=== PATIENT | male | born 1985 | race Two or more races ===

== ENCOUNTER 2016-08-03 13:04 | Emergency (ER) | payer SELFPAY ==
[~2016-08-03] VITALS: Ht 182.9 cm; Wt 72.6 kg
--- NOTE | 2016-08-03 14:12 | Emergency Room Report ---
History of Present Illness General Chief Complaint: Pain Source: Patient Present Illness HPI 31 YO Male presents to the ED c/o Right flank pain with palpable superficial mass x 6 months, pain described as burning in nature, worse with lying supine pt rates his burning sensation as 6/10 in severity, exacerbated with palpation. pt. Denies nausea, vomiting, fevers, chills, constipation, diarrhea, abdominal pain, dysuria, hematuria.he reports a history of benign cyst in the left upper shoulder that he states is cosmetic, and does not cause him symptoms as the smaller palpated version on this right flank. Denies CP, Palpitations, LOC, AMS , dizziness, Changes in Vision, Sensation, paresthesias, or a sudden severe headache. Allergies: Coded Allergies: No Known Allergies (Unverified , 08/03/16) Patient History Past Medical History: see triage record Past Surgical History: none Pertinent Family History: none Immunizations: UTD Reviewed Nursing Documentation: PMH: Agreed, PSxH: Agreed Nursing Documentation-PMH Past Medical History: No Stated History Review of Systems All Other Systems: negative except mentioned in HPI Physical Exam Vital Signs Date Time Temp Pulse Resp B/P Pulse Ox O2 Delivery O2 Flow Rate FiO2 08/03/16 13:13 97.9 91 16 136/80 98 Room Air Sp02 EP Interpretation: reviewed, normal General Appearance: no apparent distress, alert, GCS 15, non-toxic Head: normocephalic, atraumatic Eyes: bilateral eye PERRL, bilateral eye normal inspection ENT: hearing grossly normal, normal pharynx, no angioedema, normal voice Neck: full range of motion, supple/symm/no masses Respiratory: chest non-tender, lungs clear, normal breath sounds, speaking full sentences Cardiovascular #1: regular rate, rhythm, no edema Gastrointestinal: normal bowel sounds, non tender, soft, no mass - very small less than 1cm superficial well circumcribed lipoma vs cyst on the right flank region, no erythema, no increased temperature to palpation. , no guarding, no rebound Rectal: deferred Genitourinary: normal inspection, no CVA tenderness Musculoskeletal: back normal, gait/station normal, normal range of motion, non- tender, no calf tenderness Neurologic: alert, oriented x3, responsive, motor strength/tone normal, sensory intact, speech normal Psychiatric: judgement/insight normal, memory normal, mood/affect normal, no suicidal/homicidal ideation Skin: normal color, no rash, warm/dry, well hydrated, other - very small less than 1cm superficial well circumcribed lipoma vs cyst on the right flank region , no erythema, no increased temperature to palpation.. Pt has large 2.5 cm in diameter cyst located on moe posterior left shoulder no evidence of infeciton. Lymphatic: no adenopathy Medical Decision Making PA Attestation Dr. Gold is my supervising Physician whom patient management has been discussed with. Diagnostic Impression: Primary Impression: Lipoma of flank Additional Impressions: Cyst of soft tissue Urinary tract infection Qualified Codes: N30.00 - Acute cystitis without hematuria ER Course Pt. presents to the ED c/o Right flank pain intermittent with palpable superficial mass, pain described as burning in nature, worse with lying supine. Ddx considered but are not limited to Acute appy,UC, PUD, GE, pancreatitis, gallstone, kidney stone, pyelonephritis, UTI, Lipoma, malignancy Vital signs: are WNL, pt. is afebrile H&PE are most consistent with lipoma or benign cyst, will do imaging for perforation or abscess, and UA to r/o kidney pathology ORDERS: -CXR UPRIGHT 1 View: No consolidation, effusion, pneumothorax or acute cardiopulmonary findings per soft read in ED by Dr. Gold - UA: some bacteria, some mucus, wbc noted consistent with mild urinary infection ED INTERVENTIONS: -- Pt denies pain at this time. -D/w pt. that he will need to follow up with PCP, and if symptoms continue may have surgical consult referred by a PCP. -I do not suspect an emergent condition at this time. with current presentation pt. is stable for close outpatient follow up. DISCHARGE: At this time pt. is stable for d/c to home. Will provide printed patient care instructions, and any necessary prescriptions. Care plan and follow up instructions have been discussed with the patient prior to discharge. Labs Test 08/03/16 13:45 Urine Color Yellow Urine Appearance Clear Urine pH 6 (4.5-8.0) Urine Specific [place] 1.020 (1.005-1.035) Urine Protein Negative (NEGATIVE) Urine Glucose (UA) Negative (NEGATIVE) Urine Ketones Negative (NEGATIVE) Urine Occult Blood 1+ (NEGATIVE) Urine Nitrite Negative (NEGATIVE) Urine Bilirubin Negative (NEGATIVE) Urine Urobilinogen Normal MG/DL (0.0-1.0) Urine Leukocyte Esterase 1+ (NEGATIVE) Urine RBC 2-4 /HPF (0 - 0) Urine WBC 2-4 /HPF (0 - 0) Urine Squamous Epithelial Cells Occasional /LPF Urine Bacteria Occasional /HPF (NONE) Urine Mucus Few /LPF (NONE/OCC) Last Vital Signs Date Time Temp Pulse Resp B/P Pulse Ox O2 Delivery O2 Flow Rate FiO2 08/03/16 13:13 97.9 91 16 136/80 98 Room Air Disposition: HOME, SELF-CARE Condition: Stable Scripts Nitrofurantoin Monohyd/M-Cryst* (MACROBID 100 MG*) 100 Mg Capsule 100 MG ORAL EVERY 12 HOURS for 5 Days, #10 CAP Prov: Shelly Edmond 08/03/16 Lidocaine (Lidoderm) 1 Each Adh..patch 1 PATCH TOPIC DAILY, #20 PATCH 0 Refills Patch(es) may remain in place for up to 12 hours in any 24-hour period. Prov: Shelly Edmond 08/03/16 Ibuprofen* (MOTRIN*) 600 Mg Tablet 600 MG ORAL THREE TIMES A DAY, #30 TAB 0 Refills Prov: Shelly Edmond 08/03/16 Patient Instructions: Lipoma, Urinary Tract Infection, [id number] Additional Instructions: Take medications as directed. Follow up with PCP in 3-5 days Return sooner to ED if new symptoms occur, or current symptoms become worse. *!* Review provided list of free or reduced cost health clinics for follow up * !* - Please note that this Emergency Department Report was dictated using [employer] communicator technology software, occasionally this can lead to erroneous entry secondary to interpretation by the dictation equipment. Shelly Edmond Aug 03, 2016 14:12
--- NOTE | 2016-08-03 14:22 | Diagnostic Imaging Report ---
Indication: Chest pain Technique: Single AP view of the chest. Findings: Comparison: None. The bones and extra pulmonary soft tissues, cardiomediastinal silhouette, pulmonary vasculature and parenchyma, and pleural surfaces are unremarkable. IMPRESSION: Negative AP chest.
[2016-08-03] MEDS ORDERED: IBUPROFEN600 MG ORAL (14:23)
[2016-08-03] MEDS ORDERED: LIDODERM700 M1 TOPIC (14:23)
[2016-08-03 14:24] LABS: APPEARANCE,URINE CLEAR; KETONES,URINE NEGATIVE (NEGATIVE); LEUKOCYTE ESTERASE ,URINE 1+ (NEGATIVE); NITRITE,URINE NEGATIVE (NEGATIVE); PH,URINE 6 (4.5-8.0); PROTEIN,URINE NEGATIVE (NEGATIVE); UROBILINOGEN,URINE NORMAL MG/DL (0.0-1.0)
[2016-08-03 14:36] LABS: BACTERIA,URINE OCCASIONAL /HPF; MUCUS,URINE FEW /LPF (NONE/OCC); SQUAMOUS EPITHELIAL CELL,UR OCCASIONAL /LPF (NONE/OCC)
[2016-08-03] MEDS ORDERED: NITROFURANTOIN100 M2 ORAL (14:43)
[2016-08-03 15:17] VITALS: BP 134/78
[2016-08-03 15:19] VITALS: BP 134/78
== END 2016-08-03 15:21 | disposition home or self-care (01) ==
LOC: EMR 13:43
DX: D17.1 Benign lipomatous neoplasm of skin and subcutaneous tissue of trunk (principal); N30.00 Acute cystitis without hematuria; L72.8 Other follicular cysts of the skin and subcutaneous tissue; R07.9 Chest pain, unspecified
CPT/HCPCS: 71010; 81003; 99284